=== PATIENT | male | born 1975 | race Two or more races ===

== ENCOUNTER 2022-03-04 18:24 | Inpatient (IN) | payer MEDICAID, OTHER ==
[~2022-03-04] VITALS: Ht 175.3 cm; Wt 111.8 kg
[2022-03-04] MEDS ORDERED: SODIUM CHLORIDE 0.9% 2,000 ML IV ONE (20:00)
[2022-03-04 20:33] LABS: Hematocrit 39.5 % (41.0-53.0); Hemoglobin 14.1 g/dL (13.5-17.5); Mean Corpuscular Hgb Conc. 35.7 g/dL (32.0-36.0); Mean Corpuscular Volume 86.8 fL (80.0-100.0); Red Blood Cells 4.56 10^6/uL (4.5-5.90); Red Cell Distribution Width 15.5 % (11.8-14.3)
[2022-03-04 20:48] LABS: Basophils % (manual) 0 (0.0-2.0); Blast Cells 0; Calcium 7.2 mg/dL (8.5-10.1); Eosinophils % (manual) 0 (0-7); Metamyelocytes % 0; Myelocytes % 0; Potassium 4.3 mmol/L (3.5-5.1); Promyelocytes % 0; Reactive Lymphocytes 0
[2022-03-04 20:57] LABS: Bilirubin, Total 0.9 mg/dL (0.2-1.0)
[2022-03-04 22:18] LABS: Magnesium 1.9 mg/dL (1.6-2.6)
[2022-03-04 22:20] LABS: Urine Bacteria FEW /hpf (None Seen); Urine Blood Negative /uL (Negative); Urine Mucus FEW (None Seen); Urine WBC <1 /hpf (0 - 3)
[2022-03-04 22:47] LABS: BUN/Creatinine Ratio 6.7; Total Protein 8.2 g/dL (6.4-8.2)
[2022-03-04 22:54] LABS: Phosphorus 0.9 mg/dL (2.5-4.90)
[2022-03-04 22:56] LABS: Band Neutrophils % (manual) 16; Lymphocytes % (manual) 8 (10.0-50.0); Monocytes % (manual) 5 (0-12)
[2022-03-04] MEDS ORDERED: LACTATED RINGER'S 2,000 ML IV ONE (23:00)
[2022-03-04] MEDS ORDERED: SOD CHL 0.9%/ KCL 20MEQ 1,000 ML IV ONE (23:00)
[2022-03-04] MEDS ORDERED: DEXTROSE (50%) 50ML SYRG IV PRN (23:00)
[2022-03-04] MEDS ORDERED: InsuLIN R (HUMAN) 100 UNITS in SODIUM CHL 0.9% 99 ML IV SCH (23:00)
[2022-03-04] MEDS ORDERED: MAGNESIUM SULFATE 1GM/100ML 100 ML IV ONE (23:00)
[2022-03-04] MEDS ORDERED: InsuLIN REG 1unit/0.01ml Soln (100units/ml) ONE (23:30)
[2022-03-04] MEDS ORDERED: ALBUMIN 25% 100 ML IV ONE (23:45)
[2022-03-04] MEDS ORDERED: NITROGLYCERIN 0.4 MG SL TAB SL PRN (23:45)
[2022-03-04] MEDS ORDERED: DOCUSATE SOD 100 MG CAP PO PRN (23:45)
[2022-03-04] MEDS ORDERED: CALCIUM ACETATE 667 MG CAP PO ONE (23:45)
[2022-03-04] MEDS ORDERED: TEMAZEPAM 15 MG CAP PO PRN (23:45)
[2022-03-04] MEDS ORDERED: ONDANSETRON HCL 4 MG/2 ML VIAL IV PRN (23:45)
[2022-03-04] MEDS ORDERED: SODIUM CHLORIDE 0.9% 1,000 ML IV SCH (23:45)
[2022-03-04] MEDS ORDERED: MORPHINE SULFATE INJ 2 MG/ml SYRG IV PRN ×2 (23:45)
[2022-03-04] MEDS: ACCU-CHEK COMFORT CURVE STRIP VI SCH (23:51)
[2022-03-05] MEDS ORDERED: IBUPROFEN 600 MG TAB PO PRN (00:30)
[2022-03-05] MEDS ORDERED: cefTRIAXone 1GM/50ML D5W 50 ML IV ONE (00:30)
[2022-03-05] MEDS: ACCU-CHEK COMFORT CURVE STRIP VI SCH ×15 (01:36→23:32)
[2022-03-05 05:14] LABS: Chloride 105 mmol/L (98-107); Potassium 3.8 mmol/L (3.5-5.1); Sodium 129 mmol/L (136-145)
[2022-03-05 05:23] LABS: Albumin 2.9 g/dL (3.4-5.0); Alkaline Phosphatase 92 U/L (45-117); BUN/Creatinine Ratio 8.2; Bilirubin, Total 0.6 mg/dL (0.2-1.0); Blood Urea Nitrogen 5 mg/dL (7-18); Calcium 6.9 mg/dL (8.5-10.1); Carbon Dioxide 11 mmol/L (21-32); GFR African American 185 mL/min; GFR Non-African American 153 mL/min; Glucose 285 mg/dL (74-106); Lipase 224 U/L (73-393)
[2022-03-05 05:43] LABS: Anion Gap 13 (5-15)
[2022-03-05 05:45] LABS: Phosphorus 0.8 mg/dL (2.5-4.90)
[2022-03-05 07:04] LABS: Total Protein 6.8 g/dL (6.4-8.2)
[2022-03-05 08:08] LABS: Basophils # (auto) 0.1 10 ^3/uL (0-0.2); Basophils % (auto) 1.6 % (0.0-2.0); Eosinophils # (auto) 0.1 10 ^3/uL (0-0.8); Eosinophils % (auto) 0.9 % (0.0-7.0); Hematocrit 35.1 % (41.0-53.0); Hemoglobin 12.4 g/dL (13.5-17.5); Lymphocytes # (auto) 1.3 10 ^3/uL (0.4-5.4); Lymphocytes % (auto) 14.4 % (10.0-50.0); Mean Corpuscular Hemoglobin 29.7 pg (28.0-32.0); Mean Corpuscular Hgb Conc. 35.2 g/dL (32.0-36.0); Mean Corpuscular Volume 84.5 fL (80.0-100.0); Monocytes # (auto) 0.8 10 ^3/uL (0-1.3); Monocytes % (auto) 9.2 % (0.0-12.0); Neutrophils # (auto) 6.5 10 ^3/uL (1.6-8.6); Neutrophils % (auto) 73.9 % (37.0-80.0); Nucleated Red Blood Cells % 0.2 %; Red Blood Cells 4.16 10^6/uL (4.5-5.90); Red Cell Distribution Width 15.5 % (11.8-14.3); White Blood Cell 8.8 10^3/uL (4.4-10.8)
[2022-03-05] MEDS: METOPROLOL TARTRATE 25 MG TAB PO SCH ×2 (10:00→22:17)
[2022-03-05] MEDS: FAMOTIDINE (10MG/ML) 2ML VL IV SCH ×2 (10:25→22:16)
[2022-03-05] MEDS: ENOXAPARIN SOD 40 MG/0.4 ML SYRINGE SC SCH (10:26)
[2022-03-05] MEDS ORDERED: POTASSIUM PHOSPHATE 44 MEQ in D5W 5% 250 ML IV ONE (11:15)
[2022-03-05] MEDS: SODIUM CHLORIDE 0.9% 1,000 ML IV SCH ×2 (12:15→17:55)
[2022-03-05 17:32] LABS: Phosphorus 2.2 mg/dL (2.5-4.90)
[2022-03-05 21:30] LABS: Calcium 7.5 mg/dL (8.5-10.1); Potassium 3.7 mmol/L (3.5-5.1)
[2022-03-05] MEDS ORDERED: INSULIN LANTUS (GLARGINE) 1 /0.01ml (100units/ml) SC ONE (21:45)
[2022-03-05] MEDS ORDERED: DEXTROSE (50%) 50ML SYRG IV PRN (22:00)
[2022-03-05] MEDS: InsuLIN REG 1unit/0.01ml Soln (100units/ml) SC SCH (23:58)
[2022-03-06] MEDS: SODIUM CHLORIDE 0.9% 1,000 ML IV SCH ×3 (00:35→08:17)
[2022-03-06] MEDS: ACCU-CHEK COMFORT CURVE STRIP VI SCH ×5 (04:12→20:20)
[2022-03-06] MEDS: InsuLIN REG 1unit/0.01ml Soln (100units/ml) SC SCH ×5 (04:25→20:22)
[2022-03-06 06:20] LABS: BUN/Creatinine Ratio 8.8; Calcium 7.5 mg/dL (8.5-10.1); Phosphorus 1.8 mg/dL (2.5-4.90)
[2022-03-06 06:35] LABS: Hematocrit 36.4 % (41.0-53.0); Hemoglobin 12.4 g/dL (13.5-17.5); Mean Corpuscular Hemoglobin 28.8 pg (28.0-32.0); Mean Corpuscular Hgb Conc. 34.2 g/dL (32.0-36.0); Mean Corpuscular Volume 84.4 fL (80.0-100.0); Red Blood Cells 4.31 10^6/uL (4.5-5.90); Red Cell Distribution Width 15.6 % (11.8-14.3); White Blood Cell 5.8 10^3/uL (4.4-10.8)
[2022-03-06 08:20] LABS: Band Neutrophils % (manual) 0; Basophils % (manual) 0 (0.0-2.0); Blast Cells 0; Metamyelocytes % 0; Myelocytes % 0; Promyelocytes % 0; Reactive Lymphocytes 0
[2022-03-06 08:30] VITALS: BP 132/75
[2022-03-06 11:18] VITALS: BP 132/75
[2022-03-06] MEDS: METOPROLOL TARTRATE 25 MG TAB PO SCH (11:20)
[2022-03-06] MEDS: FAMOTIDINE (10MG/ML) 2ML VL IV SCH (11:20)
[2022-03-06] MEDS: ENOXAPARIN SOD 40 MG/0.4 ML SYRINGE SC SCH (11:20)
[2022-03-06] MEDS ORDERED: ATOR10TA PO (12:29)
[2022-03-06] MEDS ORDERED: PRE1T PO (12:29)
[2022-03-06] MEDS ORDERED: INSLISPI SC ×2 (12:29→16:05)
[2022-03-06] MEDS ORDERED: LISI20TA28 PO (12:29)
[2022-03-06 12:30] VITALS: BP 118/58
[2022-03-06 14:10] LABS: Eosinophils % (manual) 1 (0-7); Lymphocytes % (manual) 19 (10.0-50.0); Monocytes % (manual) 7 (0-12)
[2022-03-06] MEDS ORDERED: INSULIN LANTUS (GLARGINE) 1 /0.01ml (100units/ml) SC ONE (16:00)
[2022-03-06] MEDS ORDERED: INSLANTI SC (16:05)
[2022-03-06] MEDS ORDERED: BLOO1KIT60 XX (16:06)
[2022-03-06 17:00] VITALS: BP 113/69
[2022-03-06] MEDS ORDERED: INSULIN LISPRO (HUMAN) 100 UNITS/ML ML SC SCH (17:00)
[2022-03-06 19:36] VITALS: BP 114/68
[2022-03-06 20:00] VITALS: BP 114/68
[2022-03-07] MEDS ORDERED: LISINOPRIL 20 MG TAB PO SCH (10:00)
== END 2022-03-06 21:37 | disposition home or self-care (01) | DRG 420 ==
LOC: ER 18:24 → TELE 23:43 → TELE-CENTR 03-06 10:05
PROVIDERS: ADMIT Nurse Practitioner Family; ATTEND Hospitalist
DX: E11.10 Type 2 diabetes mellitus with ketoacidosis without coma (principal); E83.39 Other disorders of phosphorus metabolism; E88.09 Other disorders of plasma-protein metabolism, not elsewhere classified; E87.1 Hypo-osmolality and hyponatremia; E66.01 Morbid (severe) obesity due to excess calories; E86.0 Dehydration; Z20.822 Contact with and (suspected) exposure to COVID-19; E11.65 Type 2 diabetes mellitus with hyperglycemia; Z91.14 Patient's other noncompliance with medication regimen; Z79.4 Long term (current) use of insulin; Z68.36 Body mass index [BMI] 36.0-36.9, adult
CPT/HCPCS: 36415; 36600; 71045; 80048; 80053; 81001; 82010; 82805; 82962; 83036; 83605; 83690; 83735; 83880; 83930; 84100; 84484; 85007; 85025; 85027; 96361; 96365; 99291; G0378; J0696; J1815; J3490; J7060; P9047

== ENCOUNTER 2023-02-05 15:20 | Inpatient (IN) | payer MEDICAID ==
[~2023-02-05] VITALS: Ht 175.3 cm; Wt 117.0 kg
[~2023-02-05 15:20] MED LIST: ATOR10TA PO; BLOO1KIT60 XX; GLIM4TAB PO; INSLANTI SC; INSLISPI SC; LISI20TA56 PO; METF-371 PO
[2023-02-05 16:05] LABS: Urine Bacteria NONE SEEN /hpf (None Seen); Urine Blood Negative /uL (Negative); Urine Clarity HAZY (Clear); Urine Color Brown (Yellow); Urine Hyaline Cast MANY /lpf (0 - 2); Urine Mucus MANY (None Seen); Urine Protein, UAD 2+ (Negative); Urine Specific Gravity 1.031 (1.001-1.035); Urine WBC 1 /hpf (0 - 3); Urine pH 6.5 (5.0-8.0)
[2023-02-05 16:46] LABS: Basophils # (auto) 0.1 10 ^3/uL (0-0.2); Basophils % (auto) 0.9 % (0.0-2.0); Eosinophils # (auto) 0.1 10 ^3/uL (0-0.8); Eosinophils % (auto) 0.4 % (0.0-7.0); Hematocrit 47.7 % (41.0-53.0); Hemoglobin 16.2 g/dL (13.5-17.5); Lymphocytes # (auto) 1.5 10 ^3/uL (0.4-5.4); Lymphocytes % (auto) 13.1 % (10.0-50.0); Mean Corpuscular Hemoglobin 34.3 pg (28.0-32.0); Mean Corpuscular Hgb Conc. 33.9 g/dL (32.0-36.0); Mean Corpuscular Volume 101.1 fL (80.0-100.0); Monocytes # (auto) 1.1 10 ^3/uL (0-1.3); Monocytes % (auto) 8.9 % (0.0-12.0); Neutrophils # (auto) 9.1 10 ^3/uL (1.6-8.6); Neutrophils % (auto) 76.7 % (37.0-80.0); Nucleated Red Blood Cells % 0.1 %; Red Blood Cells 4.72 10^6/uL (4.5-5.90); Red Cell Distribution Width 15.4 % (11.8-14.3); White Blood Cell 11.8 10^3/uL (4.4-10.8)
[2023-02-05 16:52] LABS: Lactic Acid w/Reflex 4.1 mmol/L (0.4-2.0)
[2023-02-05 16:59] LABS: Albumin 2.6 g/dL (3.4-5.0); BUN/Creatinine Ratio 5.9 (10.0-20.0); Calcium 9.1 mg/dL (8.5-10.1); Potassium 3.7 mmol/L (3.5-5.1)
[2023-02-05 17:02] LABS: Bilirubin, Total 8.5 mg/dL (0.2-1.0); Total Protein 8.6 g/dL (6.4-8.2)
[2023-02-05] MEDS ORDERED: LACTULOSE 20Gm/30ML SOLN PO ONE (17:15)
[2023-02-05] MEDS ORDERED: NITROGLYCERIN 0.4 MG SL TAB SL PRN (18:45)
[2023-02-05] MEDS ORDERED: MORPHINE SULFATE INJ 2 MG/ml SYRG IV PRN (18:45)
[2023-02-05] MEDS ORDERED: DEXTROSE (50%) 50ML SYRG IV PRN (18:45)
[2023-02-05] MEDS ORDERED: LORazepam 2MG/ML-1ML VIAL IV ONE (18:45)
[2023-02-05] MEDS ORDERED: LORazepam 2MG/ML-1ML VIAL IV PRN (18:45)
[2023-02-05] MEDS ORDERED: ONDANSETRON HCL 4 MG/2 ML VIAL IV PRN (18:45)
[2023-02-05] MEDS ORDERED: MORPHINE SULFATE INJ 2 MG/ml SYRG IV ONE (19:00)
[2023-02-05 19:30] LABS: INR 1.22 (0.9-1.15); Partial Thromboplastin Time 29.1 SEC (24.5-34.5); Prothrombin Time 12.6 sec (9.3-11.8)
[2023-02-05] MEDS: metroNIDAZOLE 500MG/100ML 100 ML IV SCH (21:00)
[2023-02-06 01:40] VITALS: PULSE 86; RESP 14; O2SAT 95
[2023-02-06] MEDS: FOLIC ACID 1 MG, MULTIPLE VITAMIN 10 ML, MAGNESIUM SULF SDV 50% 8 MEQ, THIAMINE INJ 100... INJ SCH ×10 (02:16→12:52)
[2023-02-06] MEDS: LACTULOSE 20Gm/30ML SOLN PO SCH ×2 (02:17→10:11)
[2023-02-06] MEDS: InsuLIN REG 1unit/0.01ml Soln (100units/ml) SC SCH ×5 (02:17→23:21)
[2023-02-06] MEDS: PIPERACILLIN-TAZOB 3.375GM 100 ML IV SCH ×4 (02:17→22:27)
[2023-02-06] MEDS: ACCU-CHEK COMFORT CURVE STRIP VI SCH ×5 (02:18→22:28)
[2023-02-06] MEDS: MORPHINE SULFATE INJ 2 MG/ml SYRG IV PRN ×3 (02:19→20:23)
[2023-02-06] MEDS: SODIUM CHLORIDE 0.9% 1,000 ML IV SCH ×4 (05:23→18:49)
[2023-02-06] MEDS: metroNIDAZOLE 500MG/100ML 100 ML IV SCH ×2 (05:24→12:51)
[2023-02-06 06:01] LABS: Basophils # (auto) 0.1 10 ^3/uL (0-0.2); Eosinophils # (auto) 0.1 10 ^3/uL (0-0.8); Lymphocytes # (auto) 1.9 10 ^3/uL (0.4-5.4); White Blood Cell 13.4 10^3/uL (4.4-10.8)
[2023-02-06 06:03] LABS: Basophils % (auto) 0.7 % (0.0-2.0); Eosinophils % (auto) 0.7 % (0.0-7.0); Hematocrit 41.7 % (41.0-53.0); Hemoglobin 14.1 g/dL (13.5-17.5); Lymphocytes % (auto) 14.5 % (10.0-50.0); Mean Corpuscular Hemoglobin 34.4 pg (28.0-32.0); Mean Corpuscular Hgb Conc. 33.8 g/dL (32.0-36.0); Mean Corpuscular Volume 101.7 fL (80.0-100.0); Monocytes # (auto) 1.6 10 ^3/uL (0-1.3); Monocytes % (auto) 11.7 % (0.0-12.0); Neutrophils # (auto) 9.7 10 ^3/uL (1.6-8.6); Neutrophils % (auto) 72.4 % (37.0-80.0); Nucleated Red Blood Cells % 0.2 %; Red Cell Distribution Width 15.2 % (11.8-14.3)
[2023-02-06 06:20] LABS: Potassium 4.2 mmol/L (3.5-5.1)
[2023-02-06 06:34] LABS: Albumin 2.2 g/dL (3.4-5.0); BUN/Creatinine Ratio 5.7 (10.0-20.0); Bilirubin, Total 7.9 mg/dL (0.2-1.0); Calcium 8.5 mg/dL (8.5-10.1); Total Protein 7.5 g/dL (6.4-8.2)
[2023-02-06 07:22] VITALS: PULSE 85; RESP 18; O2SAT 96
[2023-02-06] MEDS ORDERED: LISINOPRIL 20 MG TAB PO SCH (10:00)
[2023-02-06] MEDS: PANTOPRAZOLE 40 MG/10 ML VIAL INJ IV SCH (10:11)
[2023-02-06] MEDS: ENOXAPARIN SOD 40 MG/0.4 ML SYRINGE SC SCH (10:11)
[2023-02-06 11:57] LABS: Amphetamine Screen, Urine NEGATIVE (NEGATIVE); Barbiturate Scree,Urine NEGATIVE (NEGATIVE); Benzodiazephine Screen, Urine NEGATIVE (NEGATIVE); Cannabinoid Screen, Urine NEGATIVE (NEGATIVE)
[2023-02-06 12:08] LABS: Cocaine Screen, Urine NEGATIVE (NEGATIVE); Opiate Scree,Urine POSITIVE (NEGATIVE); Phencyclidine Screen, Urine NEGATIVE (NEGATIVE)
[2023-02-06 15:54] LABS: Basophils # (auto) 0.1 10 ^3/uL (0-0.2); Basophils % (auto) 1.3 % (0.0-2.0); Eosinophils # (auto) 0.1 10 ^3/uL (0-0.8); Hemoglobin 13.1 g/dL (13.5-17.5); Lymphocytes # (auto) 1.2 10 ^3/uL (0.4-5.4); Lymphocytes % (auto) 10.7 % (10.0-50.0); Monocytes # (auto) 1.2 10 ^3/uL (0-1.3); Monocytes % (auto) 11.3 % (0.0-12.0); Neutrophils # (auto) 8.2 10 ^3/uL (1.6-8.6); Neutrophils % (auto) 75.7 % (37.0-80.0); Nucleated Red Blood Cells % 0.2 %; Red Blood Cells 3.82 10^6/uL (4.5-5.90); White Blood Cell 10.9 10^3/uL (4.4-10.8)
[2023-02-06 15:55] LABS: Hematocrit 39.4 % (41.0-53.0); Mean Corpuscular Hemoglobin 34.3 pg (28.0-32.0); Mean Corpuscular Hgb Conc. 33.2 g/dL (32.0-36.0); Mean Corpuscular Volume 103.2 fL (80.0-100.0); Red Cell Distribution Width 15.6 % (11.8-14.3)
[2023-02-06 16:06] LABS: BUN/Creatinine Ratio 8.7 (10.0-20.0); Calcium 8.3 mg/dL (8.5-10.1); Potassium 4.6 mmol/L (3.5-5.1)
[2023-02-06 19:35] VITALS: PULSE 77; RESP 13; O2SAT 97
[2023-02-06 21:42] VITALS: BP 108/64; PULSE 80; RESP 17; TEMP 98.9; O2SAT 94
[2023-02-07] MEDS: MORPHINE SULFATE INJ 2 MG/ml SYRG IV PRN ×5 (01:42→23:52)
[2023-02-07] MEDS: SODIUM CHLORIDE 0.9% 1,000 ML IV SCH ×3 (02:45→18:45)
[2023-02-07] MEDS ORDERED: INSU100I67 SC (03:24)
[2023-02-07] MEDS ORDERED: LISI10TA34 PO (03:24)
[2023-02-07 05:00] VITALS: BP 114/68; PULSE 80; RESP 22; TEMP 98.9; O2SAT 94
[2023-02-07] MEDS: PIPERACILLIN-TAZOB 3.375GM 100 ML IV SCH ×3 (06:56→21:20)
[2023-02-07] MEDS: ACCU-CHEK COMFORT CURVE STRIP VI SCH ×4 (06:57→21:20)
[2023-02-07] MEDS: InsuLIN REG 1unit/0.01ml Soln (100units/ml) SC SCH ×4 (07:02→21:23)
[2023-02-07 08:00] VITALS: BP 112/72; PULSE 75; PULSE 76; RESP 19; TEMP 97.8; O2SAT 96
[2023-02-07 08:30] VITALS: BP 112/72; PULSE 76; RESP 19; TEMP 97.8; O2SAT 96
[2023-02-07 08:36] LABS: Basophils # (auto) 0.1 10 ^3/uL (0-0.2); Eosinophils # (auto) 0.2 10 ^3/uL (0-0.8); Hemoglobin 13.5 g/dL (13.5-17.5); Mean Corpuscular Hemoglobin 34.9 pg (28.0-32.0); Monocytes # (auto) 1.1 10 ^3/uL (0-1.3); White Blood Cell 9.4 10^3/uL (4.4-10.8)
[2023-02-07 08:38] LABS: Basophils % (auto) 1.4 % (0.0-2.0); Eosinophils % (auto) 2.2 % (0.0-7.0); Hematocrit 39.4 % (41.0-53.0); Lymphocytes # (auto) 1.2 10 ^3/uL (0.4-5.4); Lymphocytes % (auto) 12.7 % (10.0-50.0); Mean Corpuscular Hgb Conc. 34.2 g/dL (32.0-36.0); Mean Corpuscular Volume 102.1 fL (80.0-100.0); Monocytes % (auto) 11.2 % (0.0-12.0); Neutrophils # (auto) 6.8 10 ^3/uL (1.6-8.6); Neutrophils % (auto) 72.5 % (37.0-80.0); Red Blood Cells 3.86 10^6/uL (4.5-5.90); Red Cell Distribution Width 15.4 % (11.8-14.3)
[2023-02-07 08:47] LABS: Calcium 8.2 mg/dL (8.5-10.1); Potassium 3.8 mmol/L (3.5-5.1)
[2023-02-07 08:49] LABS: BUN/Creatinine Ratio 10.2 (10.0-20.0)
[2023-02-07 09:19] LABS: Nucleated Red Blood Cells % 0.3 %
[2023-02-07 09:44] LABS: Albumin 2.1 g/dL (3.4-5.0); Bilirubin, Direct 6.4 mg/dL (0-0.2); Bilirubin, Total 7.9 mg/dL (0.2-1.0); Total Protein 6.8 g/dL (6.4-8.2)
[2023-02-07] MEDS: DOCUSATE SOD 100 MG CAP PO SCH ×2 (10:00→21:25)
[2023-02-07] MEDS: ENOXAPARIN SOD 40 MG/0.4 ML SYRINGE SC SCH (10:21)
[2023-02-07] MEDS: PANTOPRAZOLE 40 MG/10 ML VIAL INJ IV SCH (10:21)
[2023-02-07] MEDS: LACTULOSE 20Gm/30ML SOLN PO SCH ×3 (10:22→21:25)
[2023-02-07] MEDS ORDERED: LEVEMIR SC (10:28)
[2023-02-07] MEDS: FOLIC ACID 1 MG, MULTIPLE VITAMIN 10 ML, MAGNESIUM SULF SDV 50% 8 MEQ, THIAMINE INJ 100... INJ SCH ×5 (13:00)
[2023-02-07 16:04] VITALS: BP 134/72; PULSE 74; RESP 19; TEMP 98.6; O2SAT 99
[2023-02-07 20:00] VITALS: BP 117/72; PULSE 78; PULSE 85; RESP 18; RESP 20; TEMP 98.7; O2SAT 97
[2023-02-07 22:00] VITALS: BP 117/72; PULSE 78; RESP 20; TEMP 98.7; O2SAT 97
[2023-02-08] MEDS: SODIUM CHLORIDE 0.9% 1,000 ML IV SCH ×2 (02:45→10:45)
[2023-02-08 05:00] VITALS: BP 101/71; PULSE 79; RESP 20; TEMP 98.1; O2SAT 98
[2023-02-08] MEDS: ACCU-CHEK COMFORT CURVE STRIP VI SCH ×2 (05:20→11:48)
[2023-02-08] MEDS: PIPERACILLIN-TAZOB 3.375GM 100 ML IV SCH ×2 (05:20→14:00)
[2023-02-08] MEDS: InsuLIN REG 1unit/0.01ml Soln (100units/ml) SC SCH ×2 (05:24→11:48)
[2023-02-08] MEDS: MORPHINE SULFATE INJ 2 MG/ml SYRG IV PRN ×2 (05:29→11:22)
[2023-02-08 07:04] LABS: Basophils # (auto) 0.1 10 ^3/uL (0-0.2); Hemoglobin 12.9 g/dL (13.5-17.5); Nucleated Red Blood Cells % 0.3 %
[2023-02-08 07:07] LABS: Basophils % (auto) 1.4 % (0.0-2.0); Eosinophils # (auto) 0.1 10 ^3/uL (0-0.8); Eosinophils % (auto) 1.5 % (0.0-7.0); Hematocrit 37.3 % (41.0-53.0); Lymphocytes # (auto) 1.3 10 ^3/uL (0.4-5.4); Lymphocytes % (auto) 13.6 % (10.0-50.0); Mean Corpuscular Hemoglobin 35.4 pg (28.0-32.0); Mean Corpuscular Hgb Conc. 34.5 g/dL (32.0-36.0); Mean Corpuscular Volume 102.4 fL (80.0-100.0); Monocytes # (auto) 1.2 10 ^3/uL (0-1.3); Monocytes % (auto) 12.9 % (0.0-12.0); Neutrophils # (auto) 6.6 10 ^3/uL (1.6-8.6); Neutrophils % (auto) 70.6 % (37.0-80.0); Red Blood Cells 3.64 10^6/uL (4.5-5.90); Red Cell Distribution Width 15.5 % (11.8-14.3); White Blood Cell 9.3 10^3/uL (4.4-10.8)
[2023-02-08 07:11] LABS: BUN/Creatinine Ratio 6.9 (10.0-20.0); Calcium 8.4 mg/dL (8.5-10.1); Potassium 3.8 mmol/L (3.5-5.1)
[2023-02-08 08:00] VITALS: RESP 18; O2SAT 97
[2023-02-08 09:00] VITALS: BP 109/69; PULSE 75; RESP 18; TEMP 98; O2SAT 97
[2023-02-08] MEDS: PANTOPRAZOLE 40 MG/10 ML VIAL INJ IV SCH (09:20)
[2023-02-08] MEDS: LACTULOSE 20Gm/30ML SOLN PO SCH (09:20)
[2023-02-08] MEDS: ENOXAPARIN SOD 40 MG/0.4 ML SYRINGE SC SCH (09:20)
[2023-02-08] MEDS: DOCUSATE SOD 100 MG CAP PO SCH (09:21)
[2023-02-08] MEDS ORDERED: LEVEMIR SC (10:40)
[2023-02-08] MEDS ORDERED: DOCU-265 PO (10:40)
[2023-02-08 11:06] LABS: Hepatitis A Ab IgM Negative; Hepatitis B Core IgM Negative; Hepatitis B Surface Antigen Negative (Negative)
[2023-02-08 11:07] LABS: Hepatitis C Antibody Negative (Negative)
[2023-02-08 11:14] LABS: Albumin 1.8 g/dL (3.4-5.0); BUN/Creatinine Ratio 6.4 (10.0-20.0); Bilirubin, Total 7.5 mg/dL (0.2-1.0); Calcium 8.2 mg/dL (8.5-10.1); Potassium 3.7 mmol/L (3.5-5.1); Total Protein 6.5 g/dL (6.4-8.2)
[2023-02-08 13:00] VITALS: BP 111/63; PULSE 74; RESP 18; TEMP 98; O2SAT 96
[2023-02-08] MEDS: FOLIC ACID 1 MG, MULTIPLE VITAMIN 10 ML, MAGNESIUM SULF SDV 50% 8 MEQ, THIAMINE INJ 100... INJ SCH ×5 (13:04)
[2023-02-08] MEDS ORDERED: HYDR-4798 PO (13:18)
[2023-02-08 14:55] VITALS: BP 111/63; PULSE 74; RESP 18; TEMP 98; O2SAT 96
== END 2023-02-08 16:30 | disposition home or self-care (01) | DRG 280 ==
LOC: ER 15:20 → TELE 18:57 → TELE-EAST 02-06 21:42 → EAST 02-07 15:35
PROVIDERS: ADMIT Internal Medicine; ATTEND Student in an Organized Health Care Education/Training Program
DX: K76.82 Hepatic encephalopathy (principal); K70.40 Alcoholic hepatic failure without coma; N17.9 Acute kidney failure, unspecified; E43 Unspecified severe protein-calorie malnutrition; D68.9 Coagulation defect, unspecified; D72.829 Elevated white blood cell count, unspecified; E11.9 Type 2 diabetes mellitus without complications; E66.01 Morbid (severe) obesity due to excess calories; E78.5 Hyperlipidemia, unspecified; F10.10 Alcohol abuse, uncomplicated; I10 Essential (primary) hypertension; F17.210 Nicotine dependence, cigarettes, uncomplicated; Y90.0 Blood alcohol level of less than 20 mg/100 ml; Z68.38 Body mass index [BMI] 38.0-38.9, adult
CPT/HCPCS: 36415; 71046; 74176; 76705; 80048; 80053; 80061; 80074; 80076; 80307; 80329; 81001; 82140; 82962; 83036; 83605; 83690; 84443; 84484; 85025; 85610; 85730; 86703; 87040; C9113; G0378; J1815; J2405; J2543; J3490

== ENCOUNTER 2023-05-14 11:58 | Inpatient (IN) | payer MEDICAID ==
[~2023-05-14] VITALS: Ht 175.3 cm; Wt 112.0 kg
[~2023-05-14 11:58] MED LIST changes: -ATOR10TA PO; +DOCU-265 PO; +HYDR-4798 PO; -INSLANTI SC; +LEVEMIR SC; +LISI10TA34 PO; -LISI20TA56 PO; -METF-371 PO
[2023-05-14] MEDS ORDERED: ONDANSETRON HCL 4 MG/2 ML VIAL IV ONE (13:15)
[2023-05-14] MEDS ORDERED: HYDROmorphone HCL 2 MG/ML VL/or syr IV ONE (13:15)
[2023-05-14 14:20] LABS: Basophils # (auto) 0.1 10 ^3/uL (0-0.2); Basophils % (auto) 0.8 % (0.0-2.0); Eosinophils # (auto) 0 10 ^3/uL (0-0.8); Eosinophils % (auto) 0.2 % (0.0-7.0); Hematocrit 41.1 % (41.0-53.0); Lymphocytes # (auto) 0.7 10 ^3/uL (0.4-5.4); Lymphocytes % (auto) 6.3 % (10.0-50.0); Mean Corpuscular Hgb Conc. 34.1 g/dL (32.0-36.0); Mean Corpuscular Volume 90.9 fL (80.0-100.0); Monocytes # (auto) 1.7 10 ^3/uL (0-1.3); Monocytes % (auto) 14.5 % (0.0-12.0); Neutrophils # (auto) 9.2 10 ^3/uL (1.6-8.6); Neutrophils % (auto) 78.2 % (37.0-80.0); Red Blood Cells 4.52 10^6/uL (4.5-5.90); Red Cell Distribution Width 17.4 % (11.8-14.3); White Blood Cell 11.7 10^3/uL (4.4-10.8)
[2023-05-14 14:45] LABS: Alanine Aminotransferase 80 U/L (7-40); Albumin 2.8 g/dL (3.2-4.8); Alkaline Phosphatase 358 U/L (46-116); Anion Gap 15 (5-15); Aspartate Aminotransferase 367 U/L (13-40); Bilirubin, Total 18.9 mg/dL (0.2-1.0); Blood Urea Nitrogen 10 mg/dL (9-23); Calcium 8.1 mg/dL (8.7-10.4); Carbon Dioxide 18 mmol/L (20-30); Chloride 102 mmol/L (98-107); Glucose 202 mg/dL (74-106); Lipase 60 U/L (12-53); Potassium 3.5 mmol/L (3.5-5.1); Sodium 135 mmol/L (136-145); Total Protein 8.7 g/dL (5.7-8.2)
[2023-05-14 14:48] LABS: INR 1.6 (0.9-1.15); Partial Thromboplastin Time 38.4 SEC (24.5-34.5); Prothrombin Time 16.3 sec (9.3-11.8)
[2023-05-14] MEDS ORDERED: IOHEXOL 300 MG/ML 100ML BOTTLE IJ ONE (14:51)
[2023-05-14 15:02] LABS: Hepatitis B Surface Antigen Negative (Negative)
[2023-05-14 15:23] LABS: Hepatitis A Ab IgM Negative; Hepatitis B Core IgM Negative
[2023-05-14 15:24] LABS: Hepatitis C Antibody Negative (Negative)
[2023-05-14 15:57] LABS: Blood Alcohol 220.2 mg/dL (<10); Magnesium 1.7 mg/dL (1.6-2.6)
[2023-05-14 16:26] LABS: Lactic Acid w/Reflex 5.3 mmol/L (0.4-2.0)
[2023-05-14] MEDS ORDERED: SODIUM BICARBONATE 8.4 % INJ 50ML VIAL IV ONE (16:45)
[2023-05-14] MEDS ORDERED: cefTRIAXone 1GM/50ML D5W 50 ML IV ONE ×2 (16:45→19:15)
[2023-05-14] MEDS ORDERED: THIAMINE 100mg/ml INJ (200mg/2ml VIAL) IV ONE (16:45)
[2023-05-14] MEDS ORDERED: SODIUM CHLORIDE 0.9% 3,250 ML IV ONE ×2 (16:45→22:00)
[2023-05-14] MEDS ORDERED: AZITHROMYCIN 500MG/ 250ML 250 ML IV ONE ×2 (16:45→19:15)
[2023-05-14] MEDS ORDERED: MVI in SODIUM CHLORIDE 0.9% 1,010 ML IV ONE (16:45)
[2023-05-14] MEDS: MAGNESIUM SULFATE 1GM/100ML 100 ML IV SCH ×4 (17:25→22:59)
[2023-05-14 18:04] VITALS: RESP 18; O2SAT 95
[2023-05-14] MEDS ORDERED: PANTOPRAZOLE 40 MG/10 ML VIAL INJ IV ONE (19:15)
[2023-05-14] MEDS ORDERED: NITROGLYCERIN 0.4 MG SL TAB SL PRN (19:15)
[2023-05-14] MEDS ORDERED: DEXTROSE (50%) 50ML SYRG IV PRN (19:15)
[2023-05-14] MEDS ORDERED: MORPHINE SULFATE INJ 2 MG/ml SYRG IV PRN (19:15)
[2023-05-14] MEDS ORDERED: methylPREDNISolone SOD SUCC 125 MG/2 ML VL IV ONE (19:30)
[2023-05-14 19:42] LABS: LDL Cholesterol 86 mg/dL (< 100)
[2023-05-14 19:44] LABS: Cholesterol 171 mg/dL (< 200); HDL Cholesterol 5 mg/dL (40-59); Triglycerides 301 mg/dL (< 150)
[2023-05-14 19:46] VITALS: BP 139/95; PULSE 97; RESP 18; TEMP 97.7; O2SAT 97
[2023-05-14 20:00] VITALS: PULSE 99; RESP 17; O2SAT 94
[2023-05-14] MEDS: SODIUM CHLORIDE 0.9% 1,000 ML IV SCH (21:45)
[2023-05-14] MEDS: methylPREDNISolone SOD SUCC 40 MG/ML VL IV SCH (21:46)
[2023-05-14] MEDS: ACCU-CHEK COMFORT CURVE STRIP VI SCH (21:47)
[2023-05-14] MEDS: InsuLIN REG 1unit/0.01ml Soln (100units/ml) SC SCH (21:48)
[2023-05-14] MEDS: MORPHINE SULFATE INJ 2 MG/ml SYRG IV PRN (21:52)
[2023-05-14] MEDS ORDERED: ALBUTEROL MEDNEB 2.5 mg/3ml NEB ONE (22:17)
[2023-05-14 22:26] VITALS: PULSE 95; RESP 33; O2SAT 92; O2SAT 96
[2023-05-14] MEDS: ALBUTEROL SULF 2.5 MG/0.5ML(0.5%) NEB SOLN NEB PRN (22:26)
[2023-05-14 22:34] VITALS: PULSE 101; RESP 20; O2SAT 95
[2023-05-14 22:35] VITALS: O2SAT 95
[2023-05-14 22:46] LABS: Urine Bacteria FEW /hpf (None Seen); Urine Blood Negative /uL (Negative); Urine Clarity Clear (Clear); Urine Color Orange (Yellow); Urine Mucus FEW (None Seen); Urine Protein, UAD 1+ (Negative); Urine WBC 5 /hpf (0 - 3); Urine pH 6.5 (5.0-8.0)
[2023-05-14 22:48] LABS: Urine Specific Gravity > 1.050 (1.001-1.035)
[2023-05-14 22:50] LABS: Amphetamine Screen, Urine Neg (NEGATIVE); Barbiturate Scree,Urine Neg (NEGATIVE); Benzodiazephine Screen, Urine Neg (NEGATIVE); Cannabinoid Screen, Urine Neg (NEGATIVE); Cocaine Screen, Urine Neg (NEGATIVE); Opiate Scree,Urine Pos (NEGATIVE); Phencyclidine Screen, Urine Neg (NEGATIVE)
[2023-05-15 01:00] LABS: Lactic Acid w/Reflex 3.7 mmol/L (0.4-2.0)
[2023-05-15] MEDS: MORPHINE SULFATE INJ 2 MG/ml SYRG IV PRN ×2 (01:49→06:41)
[2023-05-15] MEDS: SODIUM CHLORIDE 0.9% 1,000 ML IV SCH ×2 (03:35→12:00)
[2023-05-15] MEDS: LORazepam 2MG/ML-1ML VIAL IV PRN ×6 (05:11→21:00)
[2023-05-15] MEDS: methylPREDNISolone SOD SUCC 40 MG/ML VL IV SCH ×3 (05:56→22:20)
[2023-05-15] MEDS: ACCU-CHEK COMFORT CURVE STRIP VI SCH ×4 (06:39→22:05)
[2023-05-15] MEDS: InsuLIN REG 1unit/0.01ml Soln (100units/ml) SC SCH ×4 (06:40→22:25)
[2023-05-15 07:05] LABS: Basophils # (auto) 0 10 ^3/uL (0-0.2); Basophils % (auto) 0.2 % (0.0-2.0); Eosinophils # (auto) 0 10 ^3/uL (0-0.8); Hematocrit 37.6 % (41.0-53.0); Lymphocytes # (auto) 0.4 10 ^3/uL (0.4-5.4); Lymphocytes % (auto) 4.1 % (10.0-50.0); Mean Corpuscular Hemoglobin 31.5 pg (28.0-32.0); Mean Corpuscular Hgb Conc. 34.5 g/dL (32.0-36.0); Mean Corpuscular Volume 91.3 fL (80.0-100.0); Monocytes # (auto) 0.6 10 ^3/uL (0-1.3); Monocytes % (auto) 6.6 % (0.0-12.0); Neutrophils % (auto) 89.1 % (37.0-80.0); Nucleated Red Blood Cells % 0.1 %; Red Blood Cells 4.12 10^6/uL (4.5-5.90); Red Cell Distribution Width 17.4 % (11.8-14.3)
[2023-05-15 07:09] LABS: Albumin 2.7 g/dL (3.2-4.8); Alkaline Phosphatase 308 U/L (46-116); Anion Gap 13 (5-15); Bilirubin, Total 19.1 mg/dL (0.2-1.0); Calcium 7.6 mg/dL (8.5-10.1); Carbon Dioxide 18 mmol/L (20-30); Chloride 100 mmol/L (98-107); Glucose 272 mg/dL (74-106); Sodium 131 mmol/L (136-145)
[2023-05-15 07:13] LABS: Alanine Aminotransferase 78 U/L (7-40); Aspartate Aminotransferase 340 U/L (13-40); BUN/Creatinine Ratio 10.9 (10.0-20.0); Blood Urea Nitrogen 10 mg/dL (9-23); Total Protein 8.1 g/dL (5.7-8.2)
[2023-05-15 07:25] VITALS: O2SAT 95
[2023-05-15] MEDS: cefTRIAXone 1GM/50ML D5W 50 ML IV SCH (09:02)
[2023-05-15 09:28] LABS: Lipase 55 U/L (12-53)
[2023-05-15] MEDS: PANTOPRAZOLE 40 MG/10 ML VIAL INJ IV SCH (09:49)
[2023-05-15] MEDS: AZITHROMYCIN 500MG/ 250ML 250 ML IV SCH (09:50)
[2023-05-15 12:38] LABS: Lactic Acid w/Reflex 5.2 mmol/L (0.4-2.0)
[2023-05-15] MEDS: FOLIC ACID 1 MG, MULTIPLE VITAMIN 10 ML, MAGNESIUM SULF SDV 50% 8 MEQ, THIAMINE INJ 100... INJ SCH ×5 (13:00)
[2023-05-15] MEDS ORDERED: hydrALAZINE HCL 20 MG/ML VL IV PRN (13:30)
[2023-05-15] MEDS ORDERED: HALOPERIDOL LACTATE 5 MG/ML INJ VIAL IM PRN (16:15)
[2023-05-15] MEDS: LACTULOSE 20Gm/30ML SOLN PO SCH (17:42)
[2023-05-15 18:39] VITALS: PULSE 108; RESP 20; O2SAT 90; O2SAT 94
[2023-05-15] MEDS: ALBUTEROL SULF 2.5 MG/0.5ML(0.5%) NEB SOLN NEB PRN (18:39)
[2023-05-15 18:49] VITALS: PULSE 109; RESP 20; O2SAT 94
[2023-05-15 19:12] LABS: Lactic Acid w/Reflex 3.2 mmol/L (0.4-2.0)
[2023-05-15 19:24] VITALS: PULSE 112; RESP 20; O2SAT 92
[2023-05-15] MEDS ORDERED: ALBUTEROL MEDNEB 2.5 mg/3ml NEB ONE (22:47)
[2023-05-16] VITALS (10 sets, daily range): BP systolic 118–152; BP diastolic 67–84; PULSE 95–108; RESP 15–22; TEMP 97.7–98.3; O2SAT 93–98
[2023-05-16] MEDS: LACTULOSE 20Gm/30ML SOLN PO SCH ×4 (00:04→18:18)
[2023-05-16] MEDS: methylPREDNISolone SOD SUCC 40 MG/ML VL IV SCH ×3 (06:14→21:16)
[2023-05-16] MEDS: ACCU-CHEK COMFORT CURVE STRIP VI SCH ×4 (06:41→21:19)
[2023-05-16] MEDS: InsuLIN REG 1unit/0.01ml Soln (100units/ml) SC SCH ×4 (06:45→21:38)
[2023-05-16] MEDS: cefTRIAXone 1GM/50ML D5W 50 ML IV SCH (08:38)
[2023-05-16 09:07] LABS: Basophils # (auto) 0 10 ^3/uL (0-0.2); Basophils % (auto) 0.3 % (0.0-2.0); Eosinophils # (auto) 0 10 ^3/uL (0-0.8); Hematocrit 38.3 % (41.0-53.0); Hemoglobin 13.3 g/dL (13.5-17.5); Lymphocytes # (auto) 0.3 10 ^3/uL (0.4-5.4); Lymphocytes % (auto) 2.9 % (10.0-50.0); Mean Corpuscular Hemoglobin 31.8 pg (28.0-32.0); Mean Corpuscular Hgb Conc. 34.7 g/dL (32.0-36.0); Mean Corpuscular Volume 91.6 fL (80.0-100.0); Monocytes % (auto) 8.9 % (0.0-12.0); Neutrophils # (auto) 9.5 10 ^3/uL (1.6-8.6); Neutrophils % (auto) 87.9 % (37.0-80.0); Nucleated Red Blood Cells % 0.2 %; Red Blood Cells 4.18 10^6/uL (4.5-5.90); Red Cell Distribution Width 17.9 % (11.8-14.3); White Blood Cell 10.8 10^3/uL (4.4-10.8)
[2023-05-16 09:23] LABS: INR 1.8 (0.9-1.15); Partial Thromboplastin Time 34.1 SEC (24.5-34.5); Prothrombin Time 18.2 sec (9.3-11.8)
[2023-05-16 09:33] LABS: Albumin 2.6 g/dL (3.2-4.8); Alkaline Phosphatase 317 U/L (46-116); Anion Gap 9 (5-15); Bilirubin, Total 23.1 mg/dL (0.2-1.0); Calcium 7.9 mg/dL (8.7-10.4); Carbon Dioxide 21 mmol/L (20-30); Chloride 103 mmol/L (98-107); Glucose 292 mg/dL (74-106); Magnesium 2.3 mg/dL (1.6-2.6); Sodium 133 mmol/L (136-145)
[2023-05-16] MEDS: PANTOPRAZOLE 40 MG/10 ML VIAL INJ IV SCH (09:46)
[2023-05-16] MEDS: AZITHROMYCIN 500MG/ 250ML 250 ML IV SCH (09:47)
[2023-05-16 11:25] LABS: Alanine Aminotransferase 86 U/L (7-40); Aspartate Aminotransferase 342 U/L (13-40); BUN/Creatinine Ratio 12.2 (10.0-20.0); Blood Urea Nitrogen 12 mg/dL (9-23); Total Protein 8.2 g/dL (5.7-8.2)
[2023-05-16] MEDS: FOLIC ACID 1 MG, MULTIPLE VITAMIN 10 ML, MAGNESIUM SULF SDV 50% 8 MEQ, THIAMINE INJ 100... INJ SCH ×5 (16:09)
[2023-05-16 19:57] LABS: Body Fluid Polymorphonuclear 8 % (0-25); Body Fluid Red Blood Cells 473 CUMM (0-2000); Body Fluid White Blood Cells 93 CUMM (0-200)
[2023-05-16] MEDS: MORPHINE SULFATE INJ 2 MG/ml SYRG IV PRN (21:15)
[2023-05-17] VITALS (7 sets, daily range): BP systolic 116–145; BP diastolic 66–81; PULSE 89–109; RESP 17–19; TEMP 98.3–98.7; O2SAT 92–96
[2023-05-17] MEDS: MORPHINE SULFATE INJ 2 MG/ml SYRG IV PRN ×4 (02:45→21:46)
[2023-05-17] MEDS: LACTULOSE 20Gm/30ML SOLN PO SCH ×4 (06:00→17:39)
[2023-05-17] MEDS: methylPREDNISolone SOD SUCC 40 MG/ML VL IV SCH ×3 (06:11→21:49)
[2023-05-17] MEDS: ACCU-CHEK COMFORT CURVE STRIP VI SCH ×4 (06:21→21:51)
[2023-05-17] MEDS: InsuLIN REG 1unit/0.01ml Soln (100units/ml) SC SCH ×4 (06:29→22:02)
[2023-05-17 06:58] LABS: Albumin 2.3 g/dL (3.2-4.8); Alkaline Phosphatase 279 U/L (46-116); Anion Gap 9 (5-15); Calcium 7.5 mg/dL (8.7-10.4); Carbon Dioxide 21 mmol/L (20-30); Chloride 105 mmol/L (98-107); Glucose 259 mg/dL (74-106); Magnesium 2.4 mg/dL (1.6-2.6); Potassium 3.9 mmol/L (3.5-5.1); Sodium 135 mmol/L (136-145)
[2023-05-17 06:59] LABS: Bilirubin, Total 22.7 mg/dL (0.2-1.0)
[2023-05-17 07:27] LABS: Alanine Aminotransferase 91 U/L (7-40); Aspartate Aminotransferase 296 U/L (13-40); BUN/Creatinine Ratio 17.7 (10.0-20.0); Blood Urea Nitrogen 17 mg/dL (9-23)
[2023-05-17 07:53] LABS: Basophils # (auto) 0 10 ^3/uL (0-0.2); Eosinophils # (auto) 0 10 ^3/uL (0-0.8); Hematocrit 35.7 % (41.0-53.0); Hemoglobin 12.4 g/dL (13.5-17.5); Lymphocytes # (auto) 0.2 10 ^3/uL (0.4-5.4); Lymphocytes % (auto) 2.4 % (10.0-50.0); Mean Corpuscular Hemoglobin 32.1 pg (28.0-32.0); Mean Corpuscular Hgb Conc. 34.8 g/dL (32.0-36.0); Mean Corpuscular Volume 92.3 fL (80.0-100.0); Monocytes # (auto) 0.9 10 ^3/uL (0-1.3); Monocytes % (auto) 9.7 % (0.0-12.0); Neutrophils # (auto) 7.9 10 ^3/uL (1.6-8.6); Neutrophils % (auto) 87.9 % (37.0-80.0); Nucleated Red Blood Cells % 0.3 %; Red Blood Cells 3.87 10^6/uL (4.5-5.90); Red Cell Distribution Width 18.8 % (11.8-14.3)
[2023-05-17 09:25] LABS: Hepatitis B Surface Antigen Negative (Negative)
[2023-05-17] MEDS ORDERED: LACT10SO3 PO (09:37)
[2023-05-17] MEDS ORDERED: LEVEMIR SC (09:37)
[2023-05-17 09:45] LABS: Hepatitis C Antibody Negative (Negative)
[2023-05-17] MEDS: PANTOPRAZOLE 40 MG/10 ML VIAL INJ IV SCH (10:00)
[2023-05-17] MEDS: cefTRIAXone 1GM/50ML D5W 50 ML IV SCH (11:07)
[2023-05-17] MEDS: AZITHROMYCIN 500MG/ 250ML 250 ML IV SCH (11:55)
[2023-05-17] MEDS: FOLIC ACID 1 MG, MULTIPLE VITAMIN 10 ML, MAGNESIUM SULF SDV 50% 8 MEQ, THIAMINE INJ 100... INJ SCH ×5 (15:28)
[2023-05-18] VITALS (7 sets, daily range): BP systolic 127–152; BP diastolic 82–88; PULSE 85–93; RESP 16–22; TEMP 36.5; O2SAT 91–95
[2023-05-18] MEDS: MORPHINE SULFATE INJ 2 MG/ml SYRG IV PRN ×3 (02:32→10:33)
[2023-05-18] MEDS: ACCU-CHEK COMFORT CURVE STRIP VI SCH ×2 (05:48→11:49)
[2023-05-18] MEDS: methylPREDNISolone SOD SUCC 40 MG/ML VL IV SCH ×2 (05:48→14:28)
[2023-05-18] MEDS: LACTULOSE 20Gm/30ML SOLN PO SCH ×3 (06:00→11:49)
[2023-05-18] MEDS: InsuLIN REG 1unit/0.01ml Soln (100units/ml) SC SCH ×2 (06:02→11:52)
[2023-05-18] MEDS: cefTRIAXone 1GM/50ML D5W 50 ML IV SCH (08:59)
[2023-05-18] MEDS ORDERED: AZITHROMYCIN 250 MG TAB PO SCH (10:00)
[2023-05-18] MEDS: PANTOPRAZOLE 40 MG/10 ML VIAL INJ IV SCH (10:32)
[2023-05-18] MEDS: FOLIC ACID 1 MG, MULTIPLE VITAMIN 10 ML, MAGNESIUM SULF SDV 50% 8 MEQ, THIAMINE INJ 100... INJ SCH ×5 (12:00)
== END 2023-05-18 15:30 | disposition home or self-care (01) | DRG 280 ==
LOC: ER 11:58 → EDBD 11:58 → TELE 19:18 → TELE-CENTR 05-16 03:17
PROVIDERS: ADMIT Nurse Practitioner Family; ATTEND Internal Medicine Geriatric Medicine
PROC: 0W9G3ZZ Drainage of Peritoneal Cavity, Percutaneous Approach (ICD-10-PCS; principal; 2023-05-16)
DX: K70.31 Alcoholic cirrhosis of liver with ascites (principal); E87.20 Acidosis, unspecified; E66.01 Morbid (severe) obesity due to excess calories; E83.42 Hypomagnesemia; F10.10 Alcohol abuse, uncomplicated; I10 Essential (primary) hypertension; K42.9 Umbilical hernia without obstruction or gangrene; K76.0 Fatty (change of) liver, not elsewhere classified; E11.9 Type 2 diabetes mellitus without complications; K80.20 Calculus of gallbladder without cholecystitis without obstruction; M54.50 Low back pain, unspecified; E80.6 Other disorders of bilirubin metabolism; Z83.3 Family history of diabetes mellitus; Z68.36 Body mass index [BMI] 36.0-36.9, adult
CPT/HCPCS: 36415; 71045; 74177; 74181; 76705; 76942; 80053; 80061; 80074; 80307; 80320; 81001; 82140; 82248; 82962; 83036; 83605; 83690; 83735; 83986; 84443; 84484; 85025; 85610; 85730; 86803; 87040; 87086; 87205; 87340; 89051; 94640; 97163; C9113; G0378; J0696; J1815; J2405

== ENCOUNTER 2023-05-22 01:04 | Inpatient (IN) | payer MEDICAID ==
[~2023-05-22] VITALS: Ht 175.3 cm; Wt 119.6 kg
[2023-05-22] VITALS (23 sets, daily range): BP systolic 79–104; BP diastolic 41–55; PULSE 75–90; RESP 8–16; TEMP 97.8–98.1; O2SAT 89–95
[~2023-05-22 01:04] MED LIST changes: +LACT10SO3 PO
[2023-05-22] MEDS ORDERED: DEXTROSE 50% SYRINGE 50 ML IV ONE (01:33)
[2023-05-22] MEDS ORDERED: DEXTROSE (50%) 50ML SYRG IV ONE ×4 (01:45→03:45)
[2023-05-22 01:52] LABS: Basophils # (auto) 0.1 10 ^3/uL (0-0.2); Basophils % (auto) 0.5 % (0.0-2.0); Eosinophils # (auto) 0.1 10 ^3/uL (0-0.8); Eosinophils % (auto) 0.5 % (0.0-7.0); Hematocrit 44.6 % (41.0-53.0); Hemoglobin 15.3 g/dL (13.5-17.5); Lymphocytes # (auto) 0.8 10 ^3/uL (0.4-5.4); Lymphocytes % (auto) 5.6 % (10.0-50.0); Mean Corpuscular Hemoglobin 32.7 pg (28.0-32.0); Mean Corpuscular Hgb Conc. 34.4 g/dL (32.0-36.0); Mean Corpuscular Volume 95.3 fL (80.0-100.0); Monocytes # (auto) 1.9 10 ^3/uL (0-1.3); Monocytes % (auto) 12.9 % (0.0-12.0); Neutrophils # (auto) 12.1 10 ^3/uL (1.6-8.6); Neutrophils % (auto) 80.5 % (37.0-80.0); Nucleated Red Blood Cells % 0.6 %; Red Blood Cells 4.68 10^6/uL (4.5-5.90); Red Cell Distribution Width 21.2 % (11.8-14.3)
[2023-05-22 02:00] LABS: INR 2.06 (0.9-1.15); Partial Thromboplastin Time 37.1 SEC (24.5-34.5); Prothrombin Time 20.6 sec (9.3-11.8)
[2023-05-22 02:04] LABS: Alkaline Phosphatase 358 U/L (46-116); Chloride 102 mmol/L (98-107); Potassium 3.9 mmol/L (3.5-5.1); Sodium 134 mmol/L (136-145)
[2023-05-22 02:05] LABS: Bilirubin, Total > 35.0 mg/dL (0.2-1.0)
[2023-05-22 02:10] LABS: Alanine Aminotransferase 324 U/L (7-40); Albumin 2.8 g/dL (3.2-4.8); Aspartate Aminotransferase 767 U/L (13-40); BUN/Creatinine Ratio 8.4 (10.0-20.0); Blood Urea Nitrogen 39 mg/dL (9-23); Calcium 8.2 mg/dL (8.7-10.4); Lipase 57 U/L (12-53); Magnesium 3.1 mg/dL (1.6-2.6); Total Protein 8.2 g/dL (5.7-8.2)
[2023-05-22 02:32] LABS: Lactic Acid w/Reflex 2.1 mmol/L (0.4-2.0)
[2023-05-22 02:33] LABS: Glucose 41 mg/dL (74-106)
[2023-05-22 02:37] LABS: Anion Gap 10 (5-15); Carbon Dioxide 22 mmol/L (20-30)
[2023-05-22] MEDS ORDERED: D5W 5% 1,000 ML IV ONE (02:45)
[2023-05-22 03:43] LABS: Amylase 114 U/L (30-118)
[2023-05-22] MEDS ORDERED: DEXTROSE 10% 1,000 ML IV ONE (03:45)
[2023-05-22] MEDS ORDERED: cefTRIAXone 1GM/50ML D5W 50 ML IV ONE ×2 (03:45→07:00)
[2023-05-22] MEDS ORDERED: ONDANSETRON HCL 4 MG/2 ML VIAL IV ONE (04:15)
[2023-05-22] MEDS ORDERED: MEPERIDINE HCL (25 MG/ML) 1ML VIAL IV ONE (04:15)
[2023-05-22] MEDS: GLUCAGON EMERG KIT 1mg/1ml IV ONE ×2 (05:33→06:54)
[2023-05-22] MEDS ORDERED: ONDANSETRON HCL 4 MG/2 ML VIAL IV PRN (08:15)
[2023-05-22] MEDS ORDERED: DEXTROSE (50%) 50ML SYRG IV PRN ×2 (08:15→19:00)
[2023-05-22] MEDS ORDERED: MORPHINE SULFATE INJ 2 MG/ml SYRG IV PRN (08:15)
[2023-05-22] MEDS ORDERED: NITROGLYCERIN 0.4 MG SL TAB SL PRN (08:15)
[2023-05-22 08:42] LABS: Urine Bacteria FEW /hpf (None Seen); Urine Blood TRACE /uL (Negative); Urine Clarity HAZY (Clear); Urine Color Brown (Yellow); Urine Protein, UAD TRACE (Negative); Urine Specific Gravity 1.018 (1.001-1.035); Urine Urobilinogen Normal (Negative); Urine WBC 2 /hpf (0 - 3)
[2023-05-22] MEDS ORDERED: SPIRONOLACTONE 25 MG TAB PO SCH (10:00)
[2023-05-22] MEDS ORDERED: PHYTONADIONE (VIT K)10 MG/ML 1ML VIAL SUBCUT ONE (10:15)
[2023-05-22] MEDS: LACTULOSE 20Gm/30ML SOLN PO SCH (10:18)
[2023-05-22] MEDS: DOPamine 1600MCG/ML D5W 250 ML IV SCH (11:21)
[2023-05-22] MEDS: InsuLIN REG 1unit/0.01ml Soln (100units/ml) SC SCH ×4 (11:30→23:56)
[2023-05-22] MEDS: ACCU-CHEK COMFORT CURVE STRIP VI SCH ×4 (11:47→23:56)
[2023-05-22] MEDS ORDERED: CEFOTAXIME SODIUM 2 GM in D5W 5% 100 ML IV SCH ×2 (12:00→14:00)
[2023-05-22] MEDS: DEXTROSE 10% 1,000 ML IV SCH (12:20)
[2023-05-22] MEDS ORDERED: ALBUMIN 25% 100 ML IV ONE ×2 (13:00→15:15)
[2023-05-22] MEDS ORDERED: OCTREOTIDE ACETATE 100 MCG/ML VL SUBCUT SCH (14:00)
[2023-05-22] MEDS: PANTOPRAZOLE 40mg/50ML NS AE 50 ML IV SCH ×2 (15:37→19:52)
[2023-05-22] MEDS: OCTREOTIDE ACETATE 500 MCG in SODIUM CHL 0.9% 99 ML IV SCH (16:15)
[2023-05-22] MEDS ORDERED: phytonadione 10 MG in SODIUM CHL 0.9% 50 ML IV ONE (16:15)
[2023-05-22] MEDS: NOREPINEPHRINE 8 MG/250ML KIT 250 ML IV SCH ×2 (17:02→18:36)
[2023-05-22] MEDS: MIDODRINE HCL 10 MG TAB PO SCH ×3 (18:00→18:37)
[2023-05-22] MEDS: MORPHINE SULFATE INJ 2 MG/ml SYRG IV PRN ×2 (19:31→23:31)
[2023-05-22] MEDS: FUROSEMIDE 40 MG/4 ML VIAL IV SCH (19:46)
[2023-05-22 21:18] LABS: Basophils # (auto) 0 10 ^3/uL (0-0.2); Basophils % (auto) 0.3 % (0.0-2.0); Eosinophils # (auto) 0.1 10 ^3/uL (0-0.8); Hematocrit 32.4 % (41.0-53.0); Hemoglobin 10.8 g/dL (13.5-17.5); Lymphocytes % (auto) 7.6 % (10.0-50.0); Mean Corpuscular Hemoglobin 32.1 pg (28.0-32.0); Mean Corpuscular Hgb Conc. 33.3 g/dL (32.0-36.0); Mean Corpuscular Volume 96.2 fL (80.0-100.0); Monocytes # (auto) 1.6 10 ^3/uL (0-1.3); Monocytes % (auto) 12.3 % (0.0-12.0); Neutrophils # (auto) 10.3 10 ^3/uL (1.6-8.6); Neutrophils % (auto) 78.8 % (37.0-80.0); Nucleated Red Blood Cells % 0.8 %; Red Blood Cells 3.37 10^6/uL (4.5-5.90)
[2023-05-22 21:23] LABS: Red Cell Distribution Width 21.8 % (11.8-14.3)
[2023-05-22] MEDS ORDERED: diphenhdrAMINE HCL 50 MG/1 ML VL IV ONE (23:15)
[2023-05-23] VITALS (89 sets, daily range): BP systolic 57–150; BP diastolic 11–114; PULSE 26–93; RESP 6–35; TEMP 97.8–99.3; O2SAT 66–99
[2023-05-23 00:35] LABS: Hematocrit 34.1 % (41.0-53.0)
[2023-05-23] MEDS: PANTOPRAZOLE 40mg/50ML NS AE 50 ML IV SCH ×4 (00:58→12:08)
[2023-05-23] MEDS: OCTREOTIDE ACETATE 500 MCG in SODIUM CHL 0.9% 99 ML IV SCH ×3 (00:58→12:43)
[2023-05-23] MEDS: DEXTROSE 10% 1,000 ML IV SCH (00:59)
[2023-05-23] MEDS: NOREPINEPHRINE 8 MG/250ML KIT 250 ML IV SCH ×4 (03:43→16:57)
[2023-05-23] MEDS: MORPHINE SULFATE INJ 2 MG/ml SYRG IV PRN (03:47)
[2023-05-23] MEDS: ACCU-CHEK COMFORT CURVE STRIP VI SCH ×4 (04:04→16:00)
[2023-05-23] MEDS: InsuLIN REG 1unit/0.01ml Soln (100units/ml) SC SCH ×4 (04:05→16:00)
[2023-05-23 04:56] LABS: Hematocrit 28.3 % (41.0-53.0); Hemoglobin 9.4 g/dL (13.5-17.5); Mean Corpuscular Hemoglobin 32.3 pg (28.0-32.0); Mean Corpuscular Hgb Conc. 33.3 g/dL (32.0-36.0); Mean Corpuscular Volume 96.9 fL (80.0-100.0); Red Blood Cells 2.91 10^6/uL (4.5-5.90); White Blood Cell 14.7 10^3/uL (4.4-10.8)
[2023-05-23 04:58] LABS: Basophils % (manual) 0 (0.0-2.0); Blast Cells 0; Myelocytes % 0; Reactive Lymphocytes 0
[2023-05-23 05:13] LABS: Alkaline Phosphatase 218 U/L (46-116); Calcium 6.9 mg/dL (8.7-10.4); Chloride 98 mmol/L (98-107); Potassium 5.4 mmol/L (3.5-5.1)
[2023-05-23 05:14] LABS: Bilirubin, Total 32.3 mg/dL (0.2-1.0)
[2023-05-23] MEDS ORDERED: PHENYLEPHRINE IV 250 ML IV ONE (05:20)
[2023-05-23 05:27] LABS: Alanine Aminotransferase 210 U/L (7-40); Albumin 2.2 g/dL (3.2-4.8); Anion Gap 18 (5-15); Aspartate Aminotransferase 479 U/L (13-40); BUN/Creatinine Ratio 10.5 (10.0-20.0); Blood Urea Nitrogen 61 mg/dL (9-23); Carbon Dioxide 11 mmol/L (20-30); Glucose 198 mg/dL (74-106); Sodium 127 mmol/L (136-145); Total Protein 5.5 g/dL (5.7-8.2)
[2023-05-23] MEDS: PHENYLEPHRINE IV 250 ML IV SCH ×3 (05:30→16:57)
[2023-05-23] MEDS: MIDODRINE HCL 10 MG TAB PO SCH ×3 (06:00→17:18)
[2023-05-23] MEDS ORDERED: SODIUM ZIRCONIUM CYCL 10 GM PAK PO ONE (07:15)
[2023-05-23] MEDS ORDERED: CALCIUM CHL 100MG/ML 500 MG in D5W 5% 100 ML IV ONE (07:15)
[2023-05-23 07:26] LABS: Anisocytosis Slight; Band Neutrophils % (manual) 6; Eosinophils % (manual) 1 (0-7); Lymphocytes % (manual) 9 (10.0-50.0); Metamyelocytes % 4; Monocytes % (manual) 11 (0-12); Platelet Estimate Adequate; Promyelocytes % 1
[2023-05-23 08:27] LABS: INR 3.39 (0.9-1.15); Prothrombin Time 32.9 sec (9.3-11.8)
[2023-05-23 08:31] LABS: Partial Thromboplastin Time 125.7 SEC (24.5-34.5)
[2023-05-23] MEDS ORDERED: cefTRIAXone 1GM/50ML D5W 50 ML IV SCH (09:00)
[2023-05-23] MEDS ORDERED: FUROSEMIDE 40 MG/4 ML VIAL IV ONE (09:30)
[2023-05-23] MEDS ORDERED: MORPHINE SULFATE INJ 2 MG/ml SYRG IV PRN (09:45)
[2023-05-23] MEDS ORDERED: LORazepam 2MG/ML-1ML VIAL IV PRN (09:45)
[2023-05-23] MEDS: LACTULOSE 20Gm/30ML SOLN PO SCH (10:00)
[2023-05-23 10:09] LABS: Base Excess -27.3 mmol/L (-2.0-2.0)
[2023-05-23] MEDS: FUROSEMIDE 40 MG/4 ML VIAL IV SCH (10:09)
[2023-05-23] MEDS: DOPamine 1600MCG/ML D5W 250 ML IV SCH ×2 (10:45→12:22)
== END 2023-05-23 23:13 | DRG 720 ==
LOC: ER 01:04 → EDBD 01:04 → TELE 08:01 → ICU WEST 17:40
PROVIDERS: ADMIT Internal Medicine; ATTEND Internal Medicine
PROC: 0W9G3ZZ Drainage of Peritoneal Cavity, Percutaneous Approach (ICD-10-PCS; 2023-05-22)
PROC: 05HD33Z Insertion of Infusion Device into Right Cephalic Vein, Percutaneous Approach (ICD-10-PCS; principal; 2023-05-23)
PROC: B54MZZA Ultrasonography of Right Upper Extremity Veins, Guidance (ICD-10-PCS; 2023-05-23)
DX: A41.9 Sepsis, unspecified organism (principal); K76.7 Hepatorenal syndrome; J96.00 Acute respiratory failure, unspecified whether with hypoxia or hypercapnia; R65.21 Severe sepsis with septic shock; G93.41 Metabolic encephalopathy; E43 Unspecified severe protein-calorie malnutrition; K70.40 Alcoholic hepatic failure without coma; K65.2 Spontaneous bacterial peritonitis; Z66 Do not resuscitate; E11.649 Type 2 diabetes mellitus with hypoglycemia without coma; E87.20 Acidosis, unspecified; K76.82 Hepatic encephalopathy; N17.9 Acute kidney failure, unspecified; E88.09 Other disorders of plasma-protein metabolism, not elsewhere classified; K70.31 Alcoholic cirrhosis of liver with ascites; I10 Essential (primary) hypertension; R74.01 Elevation of levels of liver transaminase levels; R65.20 Severe sepsis without septic shock; K92.2 Gastrointestinal hemorrhage, unspecified; Z79.4 Long term (current) use of insulin; Z83.3 Family history of diabetes mellitus; Z68.38 Body mass index [BMI] 38.0-38.9, adult
CPT/HCPCS: 36415; 36600; 70450; 71045; 71250; 74176; 76705; 76775; 76942; 80053; 80320; 81001; 82140; 82150; 82306; 82805; 82962; 83605; 83690; 83735; 83880; 83970; 84100; 84484; 85007; 85014; 85018; 85025; 85027; 85610; 85730; 86850; 86900; 86901; 86920; 87040; 87081; 87086; 99291; G0378; J0696; J2405; J3430; J7060; P9047